=== PATIENT | female | born 1950 | race Caucasian/White ===

== ENCOUNTER 2020-12-21 19:22 | Inpatient (IN) | payer OTHER ==
[~2020-12-21] VITALS: Ht 160 cm; Wt 59.0 kg
[~2020-12-21 19:22] MED LIST: HYDROCHLOROTHIAZIDE PO; LISINOPRIL10 MG PO; TEGRETOL200 MG PO; ULTRACET PO
[2020-12-21] MEDS ORDERED: CIPRO (20:26)
[2020-12-21] MEDS ORDERED: FLAGYL (20:26)
--- NOTE | 2020-12-21 20:27 | NUR ---
PTE SE RECIBE POR DOLOR DE ESTOMAGO HENOK REFIERE PTE.
--- NOTE | 2020-12-21 21:06 | NUR ---
PTE FEMENINA ES EVALUADA POR ; JANNA REYNOSO ORIENTA PTE SOBRE ORDEENS DE [place] REFIERE COMPRENDER. EXTRAE MUESTRAS DE LABORATORIO Y CANALIZA VENA BAJO MEDIDAS ASEPTICAS. ADMNINSTRA MEDICAMENTOS, BAJO MEDIDAS ASEPTICAS. NOTIFICA A RADIOLOGIA PARA XRAY Y CT.
--- NOTE | 2020-12-21 23:06 | NUR ---
PTE ALERTA,ESTABLE Y ORIENTA.SE EDUCA SOBRE EL SEGUIMIENTO QUE RECIBIRA EN EL HOSPITAL Y ESTA REFIERE ENTENDER.
[2020-12-22] MEDS ORDERED: CIPRO100 MG (08:50)
[2020-12-22] MEDS ORDERED: FLAGYL375 MG (08:50)
[2020-12-22] MEDS ORDERED: LISINOPRIL-HCT1 EAC2 PO (16:27)
[2020-12-22] MEDS ORDERED: METFORMIN HCL500 M3 PO (16:28)
[2020-12-27] MEDS ORDERED: INTESTINEX680 M1 PO (10:22)
[2020-12-27] MEDS ORDERED: AMOX1TAB5 PO (10:23)
== END 2020-12-27 13:16 | disposition home or self-care (01) | DRG 392 ==
LOC: ER 19:22 → SEC-K 12-22 → SURH 12-22 00:40
PROVIDERS: ADMIT Surgery; ATTEND Surgery
PROC: 0DJD8ZZ Inspection of Lower Intestinal Tract, Via Natural or Artificial Opening Endoscopic (ICD-10-PCS; principal; 2020-12-26)
DX: K57.32 Diverticulitis of large intestine without perforation or abscess without bleeding (principal)

== ENCOUNTER → 2021-03-09 | Day surgery (SDC) | payer OTHER ==
[~2021-03-09] MED LIST changes: +AMOX1TAB5 PO; +CIPRO; +CIPRO100 MG; +FLAGYL; +FLAGYL375 MG; +INTESTINEX680 M1 PO; +LISINOPRIL-HCT1 EAC2 PO; +METFORMIN HCL500 M3 PO
== END | disposition home or self-care (01) ==
LOC: AMB-ENDOS 07:30
PROVIDERS: ATTEND Surgery
DX: D13.1 Benign neoplasm of stomach (principal); D13.2 Benign neoplasm of duodenum; K29.80 Duodenitis without bleeding; K57.30 Diverticulosis of large intestine without perforation or abscess without bleeding; K29.30 Chronic superficial gastritis without bleeding; Z20.822 Contact with and (suspected) exposure to COVID-19